=== PATIENT | female | born 1990 | race Asian ===

== ENCOUNTER 2017-08-17 01:18 | Emergency (ER) | payer OTHER ==
[~2017-08-17] VITALS: Ht 160 cm; Wt 51.0 kg
[2017-08-17 01:22] VITALS: BP 136/82; TEMP 97.5
[2017-08-17] MEDS ORDERED: ALDACTONE50 MG PO (02:12)
[2017-08-17] MEDS ORDERED: BIRTH CONTROL (02:13)
[2017-08-17 02:14] LABS: BASO # 0.1 (0.0-0.2); BASO % 0.6 % (0.0-2.0); EOS # 0.1 (0.0-0.7); EOS % 1.2 % (0-4.0); GRAN # 4.3 (1.4-6.5); GRAN % 48.1 % (42.2-75.2); HEMATOCRIT 37.2 % (37.0-47.0); HEMOGLOBIN 12.2 g/dl (12.5-16.0); LYMPH # 3.8 (1.2-3.4); LYMPH % 42.8 % (20.0-51.0); MEAN CELL VOLUME 83 fl (80.0-100.0); MEAN CORPUSCULAR HEMOGLOBIN 27 pg (27.0-31.0); MEAN CORPUSCULAR HGB CONC 33 g/dl (33.0-37.0); MEAN PLATELET VOLUME 9.5 fl (7.4-10.4); MONO # 0.6 (0.1-0.6); MONO % 7.1 % (1.7-9.3); PLATELET COUNT 309 K/mm3 (130-400); RED BLOOD COUNT 4.47 M/mm3 (4.10-5.30); REDCELL DISTRIBUTION WIDTH-CV 13.2 % (11.5-14.5)
[2017-08-17 02:24] LABS: ALBUMIN 3.9 gm/dL (3.5-5.0); BILIRUBIN,TOTAL 0.2 mg/dL (0.0-1.0); CALCIUM 9.1 mg/dL (8.4-10.2); CREATININE, serum 0.72 mg/dL (0.52-1.25); POTASSIUM 3.3 mmol/L (3.4-5.0)
[2017-08-17 02:27] LABS: TRICYCLIC ANTIDEPRESS URINE NEGATIVE
[2017-08-17 02:57] VITALS: PULSE 74
== END 2017-08-17 02:57 | disposition home or self-care (01) ==
LOC: COL.ER 01:18
PROVIDERS: Physician Assistant
DX: T78.1XXA Other adverse food reactions, not elsewhere classified, initial encounter (principal)
CPT/HCPCS: J2405; J7030